=== PATIENT | female | born 1995 ===

== ENCOUNTER 2018-02-12 19:09 | Emergency (ER) | payer SELFPAY ==
[2018-02-12 19:42] VITALS: BMI 27.3
[2018-02-13 01:43] VITALS: BP 126/79; PULSE 109; RESP 18; TEMP 98.1
== END 2018-02-12 20:02 | disposition home or self-care (01) ==
LOC: H.EROB2 19:09
DX: O36.8130 Decreased fetal movements, third trimester, not applicable or unspecified (principal); Z3A.31 31 weeks gestation of pregnancy

== ENCOUNTER 2018-02-14 14:40 | Emergency (ER) | payer SELFPAY ==
--- NOTE | 2018-02-14 15:59 | OBHP ---
Datetime: 02/14/2018 15:47 IP Adm Impression: , intrauterine ; No Active Labor IP Adm Impression Other: No evidence of membrane rupture. IP Admit Plan: Observation/Evaluation; Discharge home Admit Comment, IP Provider: 22yo @ 31.4wks reports here today c/o feeling of some wetting of her genitals and is not sure whether she has broken her bag of membranes. She denies any vaginal bl eeding or pelvic contracions. She denies urinary frequency and dysuria. O; Afebrile, Not in apparent distress. Heart: RRR Chest: CTA B/L Abd: Soft, NT,BS- present FHR- 130s, reactiev with moderate variabilities, with accels, no decels TOCO- None Speculum exam: No gross pooling, Thick whitish discharge- Nitrazine Test - Negative Cervix - closed. Assessment: Intrauterine at 31.4 weeks No evidence of membrane rupture NST- Reactive. Plan: Discharge Home. F/U with Dr Ulloa within 1 week. labor precautions discussed. Pelvic Type - PN: Adequate Extremities - PN: Normal Abdomen - PN: Normal Back - PN: Normal Breast - PN: Normal Lungs - PN: Normal Heart - PN: Normal Thyroid - PN: Normal Neurologic - PN: Normal HEENT - PN: Normal General - PN: Normal FHR - Baseline A Provider: 135 Membranes, Provider: Intact Contraction Comments Provider: Q 2-3 Gestation - Est Wks by US: 31.4 EGA AdmitDate IP: 31.4 IP Chief Complaint: Suspected ruptured membranes; Maternal discomfort NICHD Variability Prov Fetus A: Moderate 6-25bpm NICHD Accel Fetus A IP Provider: 15X15 FHR Category Provider Fetus A: Category I NICHD Decel Fetus A IP Provider: None Dilatation, Provider: 0 Effacement, Provider: 0 Station, Provider: -3 Genitourinary Exam: Normal DTRs - PN: Normal Datetime: 02/12/2018 20:00 Vital Signs Provider: Reviewed; Within Normal Limits
[2018-02-14 19:51] VITALS: BP 124/65; PULSE 89; RESP 16; TEMP 98.6
== END 2018-02-14 15:33 | disposition home or self-care (01) ==
LOC: H.EROB2 14:40
DX: O34.63 Maternal care for abnormality of vagina, third trimester (principal); N89.8 Other specified noninflammatory disorders of vagina; Z3A.31 31 weeks gestation of pregnancy

== ENCOUNTER 2018-04-15 13:26 | Emergency (ER) | payer SELFPAY ==
[2018-04-15 15:01] VITALS: BMI 28.0
[2018-04-15 15:37] LABS: BASO % 0.2 % (0.0-2.0); EOS % 0.5 % (0.0-4.0); HEMOGLOBIN 11.8 g/dL (12.0-16.0); LYMPH # 1.2 K/uL (1.0-4.3); LYMPH % 14.4 % (20.0-40.0); MEAN CORPUSCULAR HEMOGLOBIN 27.8 pg (27.0-31.0); MEAN CORPUSCULAR HGB CONC 33.1 g/dL (33.0-37.0); MEAN PLATELET VOLUME 11.1 fl (7.2-11.7); MONO # 0.7 K/uL (0.0-0.8); MONO % 8.1 % (0.0-10.0); NEUT # 6.4 K/uL (1.8-7.0); NEUT % 76.8 % (50.0-75.0); RBC 4.25 Mil/uL (3.80-5.20); RED CELL DISTRIBUTION WIDTH 15.2 % (11.5-14.5); WHITE BLOOD COUNT 8.3 K/uL (4.8-10.8)
[2018-04-15 15:59] LABS: ALBUMIN 3.6 g/dL (3.5-5.0); ALT/SGPT 24 U/L (9-52); AST/SGOT 19 U/L (14-36); BLOOD UREA NITROGEN 9 mg/dl (7-17); CALCIUM 8.9 mg/dL (8.4-10.2); GFR NON-AFRICAN AMERICAN > 60
[2018-04-15 16:13] LABS: SQUAMOUS EPITHIAL 9 /hpf (0-5); URINE BACTERIA RARE (<OCC); URINE BILIRUBIN NEGATIVE (NEGATIVE); URINE BLOOD NEGATIVE (NEGATIVE); URINE CLARITY SLIGHTY-CLOUDY (Clear); URINE COLOR YELLOW (YELLOW); URINE GLUCOSE (UA) NEG (NEGATIVE); URINE LEUKOCYTE ESTERASE NEG Leu/uL (Negative); URINE PROTEIN NEGATIVE (NEGATIVE); URINE UROBILINOGEN 0.2-1.0 mg/dL (0.2-1.0)
[2018-04-15 16:20] LABS: BARBITURATES, UR NEGATIVE (NEGATIVE); BENZODIAZEPINES, UR NEGATIVE (NEGATIVE); OPIATES, UR NEGATIVE (NEGATIVE); PHENCYCLIDINE, UR NEGATIVE (NEGATIVE)
--- NOTE | 2018-04-15 16:54 | US ---
Date of service: 04/15/2018 PROCEDURE: Biophysical profile HISTORY: Estimate weight COMPARISON: None TECHNIQUE: Standard protocol for this study/examination. FINDINGS: FINDINGS: Biophysical profile score 8/8 Based on the followin. breathing movements: 2/2 2. Gross body movement: 2/2 3. tone: 2/2 4. Qualitative amniotic fluid index: 2/2 Amniotic fluid index 7.1 Cephalic presentation. Anterior placenta. No evidence of abruption or previa Gestational age derived from LMP 40 weeks 1 day. CESAR 04/14/2018. Gestational age derived from the following biometric parameters 39 weeks 3 days. CESAR 04/19/2018 Biparietal diameter 9.79 cm Head circumference 34.29 cm Abdominal circumference 35.28 cm Femur length 7.59 cm Estimated weight 3736 g Calculated cardiac rate 131 beats per min. IMPRESSION: Biophysical profile score 8/8. Estimated cardiac weight 3.736 kg
[2018-04-16 00:04] VITALS: BP 112/57; PULSE 85; RESP 18; TEMP 98.1; O2SAT 100
--- NOTE | 2018-04-16 08:20 | OBHP ---
Datetime: 04/15/2018 14:03 IP Adm Impression: Term, intrauterine IP Admit Plan: Observation/Evaluation Admit Comment, IP Provider: 22 YO with IUP at EGA 40.1 Wks based on first trimester US CESAR 04/14/12, who presents toda y to [facility] for a checkup of her pregancy. Patient explains that she had problem with insurance and has not had f/u of her since GA 23wks when she was last seen by her provider Dr Ulloa . Patient today reports she had mucus vaginal discharge. Patient denies VB, CONTX, LOF, abdom pain, H A, blurry vision, CP, SOB, N/V/D, dysuria, chill or fever this time. Reports +FM. ROS: unremarkable, except as per HPI. OBGYN: previous [id number] was a premature with PROM at 34 weeks. Patient reports h/o Ch lamydia in 2014. PMH: Denies FMH: Denies SOCHx: Denies drug/ETOH/TOb ALL: NKA MEDS: vitamin LABS: records not available at this time. PE GEN: NAD HEENT: NCAT RESP: CTA b/l CV: RRR, S1 S2 present, no murmurs ABD: Gravid EXT: LE no edema. Pelvic Exam: Cervix closed and thick A/P 22 YO with IUP at EGA 40.1 Wks based on first trimester US CESAR 04/14/12, cervix closed and thick. Patient with no medical care since GA 23 weeks. Plan -Monitor maternal VS and uterine CONTX -Monitor FHR -CBC, CMP, UA, Drug Sc -BPP w/ Wt Case discussed with attending Dr Dixon Martínez MD PGY1 Extremities - PN: Normal Abdomen - PN: Normal Lungs - PN: Normal Heart - PN: Normal General - PN: Normal Comments, ACOG Physical Exam: see triage comments EGA AdmitDate IP: 40.1 Vital Signs Provider: Reviewed; Within Normal Limits IP Chief Complaint: evaluation
== END 2018-04-15 19:50 | disposition home or self-care (01) ==
LOC: H.EROB2 13:26
DX: O09.33 Supervision of pregnancy with insufficient antenatal care, third trimester (principal); O48.0 Post-term pregnancy; Z3A.40 40 weeks gestation of pregnancy
CPT/HCPCS: 76815; 76818; 80053; 81003; 85025; 99284; G0480

== ENCOUNTER 2018-04-19 02:33 | Inpatient (IN) | payer MEDICAID ==
[2018-04-19 03:19] VITALS: BMI 26.6
[2018-04-19] MEDS ORDERED: Lactated Ringer's 1,000 ML IV ONE (03:21)
[2018-04-19] MEDS ORDERED: Lactated Ringer's 1,000 ML IV SCH (03:30)
[2018-04-19 03:41] LABS: BASO % 0.4 % (0.0-2.0); EOS % 0.3 % (0.0-4.0); HEMOGLOBIN 11.8 g/dL (12.0-16.0); LYMPH % 16.6 % (20.0-40.0); MEAN CELL VOLUME 84.5 fl (81.0-99.0); MEAN CORPUSCULAR HEMOGLOBIN 28.1 pg (27.0-31.0); MEAN CORPUSCULAR HGB CONC 33.3 g/dL (33.0-37.0); MEAN PLATELET VOLUME 10.8 fl (7.2-11.7); MONO % 8.3 % (0.0-10.0); NEUT # 8.8 K/uL (1.8-7.0); NEUT % 74.4 % (50.0-75.0); RBC 4.21 Mil/uL (3.80-5.20); RED CELL DISTRIBUTION WIDTH 15.3 % (11.5-14.5); WHITE BLOOD COUNT 11.9 K/uL (4.8-10.8)
--- NOTE | 2018-04-19 03:45 | OBADHP ---
Datetime: 04/19/2018 03:15 Admit Comment, IP Provider: 22yo IUP at 40w4d c/o CTX since 12am. No SROM. NoVB. +FM PNC: [facility] - chart rev'd - last visit 23w acc to pt ([facility] did not accept insurance - never sought another OB provider) UTI E.coli 1st tri screen neg No AFP GBS at [facility] Dec 2017 neg No 36w GBS POBGYNH: 2017 - x 1 34w SROM [address] [facility] LGSIL PMH: Denies PSH: denies NKA PSOH: denies smoking ETOH drugs - lives with boyfriend and child A; IUP at 40w active phase of labor Poor / Inadequate care PLAN: Admit Discussion about labor, pain managment, deliveyr and care IVF/Labs moitor progress Extremities - PN: Normal Abdomen - PN: Normal Back - PN: Normal Lungs - PN: Normal Heart - PN: Normal Neurologic - PN: Normal HEENT - PN: Normal General - PN: Normal Presentation-Admit: Vertex FHR - Baseline A Provider: 135 Membranes, Provider: Intact Pool Provider: Negative Vital Signs Provider: Reviewed IP Chief Complaint: Uterine contractions NICHD Variability Prov Fetus A: Moderate 6-25bpm NICHD Accel Fetus A IP Provider: 15X15 FHR Category Provider Fetus A: Category I NICHD Decel Fetus A IP Provider: Variable Dilatation, Provider: 7 Effacement, Provider: 90 Station, Provider: 0 Genitourinary Exam: Normal DTRs - PN: Normal EGA AdmitDate IP: 40.5 IP Adm Impression: Term, intrauterine ; Active labor; Intact Membranes IP Admit Plan: Admit to unit; Initiate labor protocol Datetime: 04/15/2018 14:03 Comments, ACOG Physical Exam: see triage comments Datetime: 02/14/2018 15:47 IP Adm Impression Other: No evidence of membrane rupture. Pelvic Type - PN: Adequate Breast - PN: Normal Thyroid - PN: Normal Contraction Comments Provider: Q 2-3 Gestation - Est Wks by US: 31.4
[2018-04-19] MEDS ORDERED: Lidocaine 1% Inj (20ml) ONE (03:49)
[2018-04-19] MEDS ORDERED: Oxycodone/Acetaminophen 5/325 mg Tab PO PRN ×4 (04:39→05:40)
[2018-04-19] MEDS ORDERED: Benzocaine/Menthol SPRAY TOP PRN ×2 (04:39→05:40)
[2018-04-20 06:21] LABS: BASO % 0.3 % (0.0-2.0); EOS # 0.1 K/uL (0.0-0.7); EOS % 1.5 % (0.0-4.0); HEMOGLOBIN 10.3 g/dL (12.0-16.0); LYMPH % 20.6 % (20.0-40.0); MEAN CELL VOLUME 85.8 fl (81.0-99.0); MEAN CORPUSCULAR HEMOGLOBIN 27.7 pg (27.0-31.0); MEAN CORPUSCULAR HGB CONC 32.3 g/dL (33.0-37.0); MEAN PLATELET VOLUME 10.6 fl (7.2-11.7); MONO # 0.9 K/uL (0.0-0.8); MONO % 9.6 % (0.0-10.0); NEUT # 6.5 K/uL (1.8-7.0); NRBC % 0.1 % (0.0-0.0); RBC 3.73 Mil/uL (3.80-5.20); RED CELL DISTRIBUTION WIDTH 15.4 % (11.5-14.5); WHITE BLOOD COUNT 9.5 K/uL (4.8-10.8)
--- NOTE | 2018-04-20 07:45 | OBPPN ---
Datetime: 04/20/2018 06:36 PP Pain Prov: Within normal limits PP Nausea Prov: Denies PP Flatus Prov: Yes PP BM Prov: No PP Breasts Prov: Not Done PP Heart Prov: Normal PP Lungs Prov: Normal PP Abdomen/Uterus Prov: Normal PP Lochia Prov: Normal PP Vulva/Perineum Prov: Not Done PP CVA Tenderness Prov: Normal PP Extremities Prov: Normal PP C/S Incision Prov: Not Applicable PP Progress Prov: Normal PP Comments Phys Exam Prov: See note PP Impression Prov: Normal progression PP Plan Prov: Continue present management PP Progress Note Prov: 22 yo s/p NVD seen and examined at bedside PPD1. No Acute event overnigh t. Pt pain is minimal. Regular diet. Pt able to ambulate, pass void, but no BM. Pt lochia is equal th an menses. Denies any chest pain sob, N/V/ dysuria or polyuria. Pt request Circumcision O: VS WNL GEN: NAD HEENT: NCAT RESP: CTA b/l CV: RRR, S1 S2 ABD: Soft, uterus firm at umbilicus level. Firm EXT: No edema, Jennifer's neg A/P 22 yo s/p NVD , today on her PPD1 with normal progression. Plan Continue Same management Encourage ambulate Encourage . 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 Agree w/ above. PPD 1 s/p , doing well, b reast feeding. Continue current care. (ES) Vital Signs Provider PP: Reviewed; Within Normal Limits
[2018-04-21 18:57] VITALS: BP 119/57; PULSE 79; RESP 20; TEMP 98.1; O2SAT 100
== END 2018-04-21 13:50 | disposition home or self-care (01) | DRG 560 ==
LOC: H.EROB2 02:33 → H.L&D 03:21 → H.OB/GYN 06:00
PROVIDERS: ADMIT Obstetrics & Gynecology; ATTEND Obstetrics & Gynecology
PROC: 10E0XZZ Delivery of Products of Conception, External Approach (ICD-10-PCS; principal; 2018-04-19)
PROC: 4A1HXCZ Monitoring of Products of Conception, Cardiac Rate, External Approach (ICD-10-PCS; 2018-04-19)
DX: O48.0 Post-term pregnancy (principal); Z37.0 Single live birth; Z3A.40 40 weeks gestation of pregnancy; Z87.440 Personal history of urinary (tract) infections